=== PATIENT | female | born 1980 | race Caucasian/White ===

== ENCOUNTER 2019-03-17 11:30 | Emergency (ER) | payer SELFPAY ==
[~2019-03-17] VITALS: Ht 160 cm; Wt 45.5 kg
[2019-03-17 11:55] VITALS: Ht 160 cm; Wt 45.5 kg
[2019-03-17 13:07] LABS: BASOPHILS 0.1 % (0-2); EOSINOPHILS 0 % (0-7); HEMATOCRIT 41.6 % (36.0-48.0); HEMOGLOBIN 13.7 g/dL (12-16); IMMATURE GRANULOCYTES 0.6 % (0-5); LYMPHOCYTES 20.7 % (15-50); MCH 30.6 pg (26.0-34.0); MCHC 32.9 g/dL (31.0-37.0); MCV 92.9 fL (80.0-100.0); MEAN PLATELET VOLUME 9.1 fL (7.4-10.4); MONOCYTES 18.7 % (2-11); NEUTROPHILS 59.9 % (40-80); PLATELET COUNT 235 10x3/uL (130-400); RBC 4.48 10x6/uL (4.00-5.40); RDW 13.1 % (11.5-14.5); WBC 8.3 10x3/uL (4.8-10.8)
[2019-03-17 13:09] LABS: HCG URINE NEGATIVE (NEGATIVE)
[2019-03-17 13:10] LABS: ANION GAP 16.9 mmol/L (8-16); CALCIUM 8.2 mg/dL (8.5-10.1); CARBON DIOXIDE 22.4 mmol/L (21.0-32.0); POTASSIUM - SERUM 4.3 mmol/L (3.5-5.1)
[2019-03-17 13:12] LABS: APPEARANCE CLOUDY (CLEAR); BILIRUBIN NEGATIVE (NEGATIVE); COLOR YELLOW (YELLOW); GLUCOSE NEGATIVE (NEGATIVE); KETONE NEGATIVE (NEGATIVE); NITRITE NEGATIVE (NEGATIVE); PROTEIN 1+ mg/dL (NEGATIVE); UROBILINOGEN NORMAL (NORMAL)
[2019-03-17 13:14] LABS: BACTERIA FEW /hpf (NEGATIVE); EPITHELIAL CELLS 0-5 /hpf (0-5); WHITE CELLS - URINE >50 /hpf (NEGATIVE)
[2019-03-17 13:15] LABS: ALBUMIN 3.4 g/dL (3.4-5.0); BILIRUBIN - TOTAL 0.27 mg/dL (0.2-1.3); PROTEIN - SERUM 7.6 g/dL (6.4-8.2)
[2019-03-17] MEDS ORDERED: KEFLEX500 MG PO (14:00)
[2019-03-17] MEDS ORDERED: MACROBID100 MG PO (14:00)
[2019-03-17 14:24] VITALS: BP 108/40
== END 2019-03-17 14:24 | disposition home or self-care (01) ==
LOC: D.ER 11:30
PROVIDERS: Family Medicine
DX: N39.0 Urinary tract infection, site not specified (principal); R05 Cough

== ENCOUNTER 2019-06-30 00:41 | Emergency (ER) | payer SELFPAY ==
[~2019-06-30] VITALS: Ht 160 cm; Wt 51.1 kg
[~2019-06-30 00:41] MED LIST: KEFLEX500 MG PO; MACROBID100 MG PO
[2019-06-30 00:54] VITALS: Ht 160 cm; Wt 51.1 kg
[2019-06-30] MEDS ORDERED: KEFLEX500 MG PO (02:15)
[2019-06-30] MEDS ORDERED: NORCO-7.51 TAB PO (02:15)
[2019-06-30 02:51] VITALS: BP 141/88
== END 2019-06-30 02:52 | disposition home or self-care (01) ==
LOC: D.ER 00:41
DX: S61.012A Laceration without foreign body of left thumb without damage to nail, initial encounter (principal); W25.XXXA Contact with sharp glass, initial encounter; Y93.9 Activity, unspecified; Y92.9 Unspecified place or not applicable; Y99.0 Civilian activity done for income or pay